=== PATIENT | female | born 1985 | race Caucasian/White ===

== ENCOUNTER 2020-05-31 20:50 | Emergency (ER) | payer MEDICAID ==
[~2020-05-31] VITALS: Ht 154.9 cm; Wt 61.4 kg
[2020-05-31] MEDS ORDERED: normal saline 1000ML IV soln IV ONE (21:10)
[2020-05-31] MEDS ORDERED: ondansetron/PF 4mg/2ml inj IV ONE (21:30)
[2020-05-31] MEDS ORDERED: normal saline 1000ML IV soln IVB ONE (21:30)
[2020-05-31] MEDS ORDERED: morphine 4 MG/ML inj SYRINge IV PRN (21:30)
[2020-05-31 21:54] LABS: BASOPHILS # (AUTO) 0.1 X10'3 (0-0.2); BASOPHILS % (AUTO) 0.6 % (0-1); EOSINOPHILS % (AUTO) 0.2 % (0-6); HEMATOCRIT 39.5 % (35.0-45.0); LYMPHOCYTES # (AUTO) 0.9 X10'3 (1.1-4.8); LYMPHOCYTES % (AUTO) 6.9 % (21-51); MEAN CORPUSCULAR HEMOGLOBIN 31.3 PG (27.0-31.0); MEAN CORPUSCULAR HGB CONC 32.9 g/dL (33.0-36.5); MEAN CORPUSCULAR VOLUME 95.1 FL (78-98); MEAN PLATELET VOLUME 8.1 FL (7.4-10.4); MONOCYTES # (AUTO) 0.4 X10'3 (0-0.9); MONOCYTES % (AUTO) 3.1 % (2-12); NEUTROPHILS % (AUTO) 89.2 % (42-75); PLATELET COUNT 226 X10'3 (140-440); RED BLOOD COUNT 4.16 X10'6 (4.20-5.60); RED CELL DISTRIBUTION WIDTH 12.6 % (11.5-14.5); WHITE BLOOD COUNT 13.5 X10'3 (4.5-11.0)
[2020-05-31 21:57] LABS: CLARITY,URINE CLOUDY (Clear); COLOR,URINE YELLOW (Yellow); GLUCOSE, URINE NEGATIVE (Neg); KETONES,URINE NEGATIVE (Neg); LEUKOCYTE ESTERASE ,URINE LARGE (Neg); NITRITES, URINE NEGATIVE (Neg); OCCULT BLOOD,URINE MODERATE (Neg); PH,URINE 6.5 (4.8-8.0); PROTEIN,URINE 30 mg/dl (Neg); UA COLLECTION TYPE CLN CATCH MIDSTREAM; URINE HCG NEGATIVE (NEG); UROBILINOGEN,URINE 0.2 E.U/dL (0.2-1.0)
[2020-05-31] MEDS ORDERED: neomy sulf/polymyx B sulf/HC 10ml otic suspension EACH EAR ONE (22:00)
[2020-05-31 22:02] LABS: BACTERIA,URINE 2+ /HPF (Neg); SQUAMOUS EPITHELIAL CELL,UR FEW /LPF (FEW); WBC,URINE 50-100 /HPF (0-4)
[2020-05-31 22:08] LABS: ALANINE AMINOTRANSFERASE 21 U/L (12-78); ALBUMIN 3.5 G/DL (3.4-5.0); ALKALINE PHOSPHATASE 56 IU/L (46-116); ANION GAP 10 (8-16); ASPARTATE AMINO TRANSFERASE 16 U/L (10-37); BILIRUBIN,TOTAL 0.5 MG/DL (0.1-1.0); BLOOD UREA NITROGEN 14 MG/DL (7-18); CHLORIDE 101 MMOL/L (99-107); CREATININE 1.17 MG/DL (0.40-0.90); GLUCOSE 99 MG/DL (70-104); LIPASE 114 U/L (73-393); SODIUM 137 MMOL/L (135-145); TOTAL CARBON DIOXIDE 25.7 MMOL/L (24-32); TOTAL PROTEIN 7.1 G/DL (6.4-8.2); eGFR 53 ML/MIN
[2020-05-31 22:09] LABS: URINE AMPHETAMINE SCREEN POSITIVE (Neg); URINE BARBITUATE SCREEN NEGATIVE (Neg); URINE BENZODIAZEPINES SCREEN NEGATIVE (Neg); URINE CANNABINOID SCREEN NEGATIVE (Neg); URINE COCAINE SCREEN NEGATIVE (Neg); URINE METHADONE SCREEN NEGATIVE (Neg); URINE OPIATE SCREEN NEGATIVE (Neg); URINE PHENCYCLIDINE SCREEN NEGATIVE (Neg)
[2020-05-31 22:15] LABS: CALCIUM 8.6 MG/DL (8.5-10.1)
[2020-05-31] MEDS ORDERED: CefTRIAXone 2gm/D5W 50ml 50 ML IV ONE (22:25)
[2020-05-31] MEDS ORDERED: NAPR-56 PO (22:53)
[2020-05-31] MEDS ORDERED: ONDA4TAB6 PO (22:53)
[2020-05-31] MEDS ORDERED: CEPH250T PO (22:53)
[2020-06-01 01:39] VITALS: BP 106/63
== END 2020-06-01 01:37 | disposition home or self-care (01) ==
LOC: ER 20:51
DX: H60.93 Unspecified otitis externa, bilateral (principal); N12 Tubulo-interstitial nephritis, not specified as acute or chronic; F15.10 Other stimulant abuse, uncomplicated; F17.200 Nicotine dependence, unspecified, uncomplicated; Z79.899 Other long term (current) drug therapy
CPT/HCPCS: 36415; 74176; 80053; 80305; 81001; 81025; 83605; 83690; 84145; 85025; 87040; 87077; 87088; 87186; 96365; 96375; 99284; J0696; J2270; J2405; J7030

== ENCOUNTER 2024-12-02 15:56 | Outpatient (CLI) | payer BC ==
[~2024-12-02 15:56] MED LIST: ONDA4TAB6 PO
== END 2024-12-02 23:59 | disposition home or self-care (01) ==
LOC: RAD 15:56
PROVIDERS: ATTEND Obstetrics & Gynecology Hospice and Palliative Medicine
DX: Z30.49 Encounter for surveillance of other contraceptives (principal)
CPT/HCPCS: 36415; 86592

== ENCOUNTER 2025-01-12 09:27 | Emergency (ER) | payer BC ==
[~2025-01-12] VITALS: Ht 152.4 cm; Wt 61.4 kg
[2025-01-12 09:42] VITALS: BP 122/60; PULSE 81; RESP 18; TEMP 98.7; O2SAT 98
== END 2025-01-12 11:23 | disposition home or self-care (01) ==
LOC: ER 09:28
DX: S82.891A Other fracture of right lower leg, initial encounter for closed fracture (principal); X58.XXXA Exposure to other specified factors, initial encounter; Y93.01 Activity, walking, marching and hiking; Y92.89 Other specified places as the place of occurrence of the external cause; Y99.8 Other external cause status
CPT/HCPCS: 73610; 99284; L4360

== ENCOUNTER 2025-01-26 11:34 | Emergency (ER) | payer BC ==
[~2025-01-26] VITALS: Ht 152.4 cm; Wt 61.4 kg
[2025-01-26 11:40] VITALS: BP 110/73; PULSE 82; TEMP 98; O2SAT 97
[2025-01-26 12:14] VITALS: RESP 16
== END 2025-01-26 12:16 | disposition home or self-care (01) ==
LOC: ER 11:35
DX: S93.401A Sprain of unspecified ligament of right ankle, initial encounter (principal); X58.XXXA Exposure to other specified factors, initial encounter; Y93.89 Activity, other specified; Y92.89 Other specified places as the place of occurrence of the external cause; Y99.8 Other external cause status
CPT/HCPCS: 99281

== ENCOUNTER 2025-03-12 01:40 | Emergency (ER) | payer BC ==
[~2025-03-12] VITALS: Ht 152.4 cm; Wt 58.9 kg
[2025-03-12 01:55] VITALS: BP 144/87; PULSE 81; RESP 15; TEMP 97.6; O2SAT 100
== END 2025-03-12 03:36 | disposition home or self-care (01) ==
LOC: ER 01:41
DX: S93.491A Sprain of other ligament of right ankle, initial encounter (principal); F17.200 Nicotine dependence, unspecified, uncomplicated; Z79.899 Other long term (current) drug therapy; X50.1XXA Overexertion from prolonged static or awkward postures, initial encounter; Y93.89 Activity, other specified; Y92.89 Other specified places as the place of occurrence of the external cause; Y99.8 Other external cause status
CPT/HCPCS: 73610; 99284; A6449